=== PATIENT | male | born 1965 | race Caucasian/White ===

== ENCOUNTER 2021-01-19 04:15 | Emergency (ER) | payer MEDICAID, OTHER ==
[~2021-01-19] VITALS: Ht 185.4 cm; Wt 81.6 kg
[2021-01-19 08:07] VITALS: BP 124/85
== END 2021-01-19 12:31 | disposition left against medical advice (07) ==
LOC: ER 04:15
DX: M79.644 Pain in right finger(s) (principal); Z53.21 Procedure and treatment not carried out due to patient leaving prior to being seen by health care provider